=== PATIENT | female | born 1975 | race Caucasian/White ===

== ENCOUNTER 2021-07-16 08:19 | Outpatient (REF) | payer MEDICARE, MEDICAID, SELFPAY ==
[2021-07-16 09:03] LABS: COVID-19 Test Positive (Negative)
== END 2021-07-16 08:20 | disposition home or self-care (01) ==
LOC: HO.LAB 08:19
PROVIDERS: Visit Provider Internal Medicine
DX: Z20.822 Contact with and (suspected) exposure to COVID-19 (principal)
CPT/HCPCS: 87635; C9803

== ENCOUNTER → 2023-04-13 08:11 | Outpatient (BNVA) | payer MEDICARE, MEDICAID, SELFPAY | PROVIDERS: Visit Provider Physician Assistant ==

== ENCOUNTER 2023-05-11 08:06 | Outpatient (AMB) | payer MEDICARE, MEDICAID, SELFPAY ==
--- NOTE | 2023-05-11 08:13 | A.OFFVIS_ITS ---
Intake VS Expanded 05/11/23 08:29 BP 174/2 H Blood Pressure Location Rt brachial Blood Pressure Position Sitting Pulse 105 H Pulse Source Pulse Oximeter Temp 98.0 F Temperature Source Temporal Artery Scan Pulse Oximetry 97 Oxygen Delivery Method Room Air Height 5 ft 5 in Weight 229 lb 3.2 oz BMI 38.1 Body Fat % 45.7 Body Fat Mass 104.8 Fat Free Mass 124.4 Visceral Fat Rating 12.0 Body Water % 38.7 Body Water Mass 88.6 Muscle Mass/Score 118.2 Basal Metabolic Rate/Score 1,752 Intake Visit Reasons: (OV) Revision BMI 37.9 SWL Allergies bupropion [From Wellbutrin] Adverse Reaction (Severe, Verified 05/11/23 08:23) Anxiety Medication List - Last Reconciled 05/11/23 by Micaela Koo PA-C alprazolam 0.25 mg PO BEDTIME PRN amlodipine 5 mg PO DAILY HPI HPI Comments History of Present Illness Details This is a 48 year old woman who had LSG by Dr Bernard at [facility] [place] on 05/11/2023 at 263 lbs states she never had the weight loss that she wanted and has been seeing their RD without success for weight loss. Nausea when hungry only, no emesis, reflux or abd pain. No intolerance to any foods, does not feel that she has much restriction. Her goal is to weight areound 170 lbs She reports first being concerned about her weight 3 years.She lives with her partner and son. She is unemployed. She wakes at:4:30 am, bed at 9am Breakfast: coffee 1 cup at 5am - sugar free creamer or half and half with 3 tsp sugar 6 am - 1-2 eggs with 3 links of sausage. fresh fruit - 3-4 strawberries. 10 am - 48 gram liquid protein shake - 1 2 oz ??, over 30 minutes Lunch: 1pm - half sandwich or 1.5 cups salad with 4 oz whole chicken breast. Dinner: 5pm - half sweet potato, 1/2 cup vegetable and 1 chicken breast or pork chop. Crystal Light After dinner: after dinner fruit or cereal with 2% cows milk - feels hungry Other snacks: may have Ritz crackers - 4 at a time with cheese - eats 4-5 slices (1oz during each day) Liquids: No soda or fruit juice or sweetened drinks Alcohol intake: none, tobacco: none, marijuana: edibles, once per day before or after dinner Exercise: has gym membership, last time 1 month ago. Likes treadmill - speed 3- 4, x 35 minutes, incline 2-3 for 100 calories. Last mammogram: 2022 Last pap smear: 2022 control method: IUD NAMAN: 5 ESS:9 GERD2: QOL:78 PFSH Surgical History (Updated 05/11/23 @ 08:40 by Micaela Koo PA-C) Hx of laparoscopic partial gastrectomy Family History (Updated 05/11/23 @ 08:27 by Danae Marinelli CMA) Mother Colon cancer Father No problems noted. Son Autism Daughter No problems noted. Social History (Updated 05/11/23 @ 08:23 by Danae Marinelli CMA) Alcohol intake: never Patient Tobacco Use Status: Never used Tobacco Physical Exam Vital Signs: Last Vital Signs Temp 98.0 F 05/11/23 08:29 Pulse 105 H 05/11/23 08:29 BP 174/2 H 05/11/23 08:29 Pulse Ox 97 05/11/23 08:29 Oxygen Delivery Method Room Air 05/11/23 08:29 BMI result Body Mass Index 38.1 Const General: cooperative, no acute distress and well developed Nutritional Appearance: obese Orientation/consciousness: patient oriented x3 HEENT Head: Yes normal to inspection Neck Neck: Yes normal visual inspection Thyroid: Thyroid normal Resp Effort & Inspection: normal respiratory effort Auscultation: clear to auscultation bilaterally Cardio Rate: regular rate Rhythm: regular rhythm Heart sounds: S1 normal heart sound present, S2 normal heart sound present and no murmurs GI Inspection: No distended, Yes obesity and Yes scar (well healed laparoscopic scars) Palpation (GI): Soft to palpation, nontender and no guarding Skin General skin exam: no rashes or lesions noted and other (warm and dry) Wounds: no wounds Hair: normal Neuro General: patient oriented x3 Extrem General: Yes no pedal edema and Yes no calf tenderness Psych Attitude: cooperative Thought process: Normal thought process present Thought content: Normal thought content present Insight: Good insight present (Psych) Judgement: Good judgement present (Psych) Assessment & Plan Assessment & Plan (1) Obesity: Code(s): E66.9 - Obesity, unspecified Plan: This is a 48 yo woman with obesuity s/p LSG 2 years who was never given protper nutrition or exercise guidelines. She had 1 post op appt with surgeon only. She is interested in revision of LSg if needed.Blood work, h pylori , CXR, ECG, Abd ULS and UGI have been ordered. She is being scheduled for RD and BH initial consultations. She will start SWL classes and watch at 3 classes before her next appt with Keysha. Will obtain OR report and pathology form [facility]. 1. Adequate sleep of 7-8 hours per night discussed 2. Healthy meal plan - needs to learn appropriate eating behaviors All meals/MR's need to take 20 - 30 minutes to complete coffee with 2% milk only 7:30 am - protein shake with water or UAM 11:30 am - protein shake with water or UAM 2:30pm- bar 5 -6 pm- dinner of 8 forks lean protein, 8 forks vegetable, 1/2serving fruit Exercise - Cardio 4 d week = treadmill at speed 3.0, incline 1-7 - to burn 300 calories, to start. Goal of 2,000 bianca per week The importance of avoiding and breast feeding for at least 18 months a fter bariatric surgery was discussed in the information session and was reinforced today. Pt will purchase body composition analyzer (recommended list given to patient) and weight herself weekly. Next appt with me in 3 weeks. Text me with any questions and weekly weights. Patient is morbidly obese and is not considered stable at this time.?I spent a total of 60 minutes reviewing/updating records, examining the patient and counseling the patient on weight management as detailed above. (2) Hx of laparoscopic partial gastrectomy: Comment: [facility] 05/30 Code(s): Z90.3 - Acquired absence of stomach [part of] (3) Pre-op evaluation: Code(s): Z01.818 - Encounter for other preprocedural examination (4) HTN (hypertension), benign: Code(s): I10 - Essential (primary) hypertension (5) Depression with anxiety: Code(s): F41.8 - Other specified anxiety disorders Orders: Orders IRON PROFILE Today E66.9 - Obesity, unspecified, F41.8 - Other specified anxiety disorders, I10 - Essential (primary) hypertension, Z01.818 - Encounter for other preprocedural examination, Z90.3 - Acquired absence of stomach [part of] Complete Blood Count Auto Diff Today E66.9 - Obesity, unspecified, F41.8 - Other specified anxiety disorders, I10 - Essential (primary) hypertension, Z01.818 - Encounter for other preprocedural examination, Z90.3 - Acquired absence of stomach [part of] Zinc Today E66.9 - Obesity, unspecified, F41.8 - Other specified anxiety disorders, I10 - Essential (primary) hypertension, Z01.818 - Encounter for other preprocedural examination, Z90.3 - Acquired absence of stomach [part of] Comprehensive Met. Panel Today E66.9 - Obesity, unspecified, F41.8 - Other specified anxiety disorders, I10 - Essential (primary) hypertension, Z01.818 - Encounter for other preprocedural examination, Z90.3 - Acquired absence of stomach [part of] Vitamin B1 Today E66.9 - Obesity, unspecified, F41.8 - Other specified anxiety disorders, I10 - Essential (primary) hypertension, Z01.818 - Encounter for other preprocedural examination, Z90.3 - Acquired absence of stomach [part of] Ferritin Today E66.9 - Obesity, unspecified, F41.8 - Other specified anxiety disorders, I10 - Essential (primary) hypertension, Z01.818 - Encounter for other preprocedural examination, Z90.3 - Acquired absence of stomach [part of] H Pylori Breath Test Today E66.9 - Obesity, unspecified, F41.8 - Other specified anxiety disorders, I10 - Essential (primary) hypertension, Z01.818 - Encounter for other preprocedural examination, Z90.3 - Acquired absence of stomach [part of] Vitamin D 25-OH Total Today E66.9 - Obesity, unspecified, F41.8 - Other specified anxiety disorders, I10 - Essential (primary) hypertension, Z01.818 - Encounter for other preprocedural examination, Z90.3 - Acquired absence of stomach [part of] Hemoglobin A1c Today E66.9 - Obesity, unspecified, F41.8 - Other specified anxiety disorders, I10 - Essential (primary) hypertension, Z01.818 - Encounter for other preprocedural examination, Z90.3 - Acquired absence of stomach [part of] XR chest 2V Today E66.9 - Obesity, unspecified, F41.8 - Other specified anxiety disorders, I10 - Essential (primary) hypertension, Z01.818 - Encounter for other preprocedural examination, Z90.3 - Acquired absence of stomach [part of] ECG 12 lead EKG Today E66.9 - Obesity, unspecified, F41.8 - Other specified anxiety disorders, I10 - Essential (primary) hypertension, Z01.818 - Encounter for other preprocedural examination, Z90.3 - Acquired absence of stomach [part of] FL upper GI w air Today E66.9 - Obesity, unspecified, F41.8 - Other specified anxiety disorders, I10 - Essential (primary) hypertension, Z01.818 - Encounter for other preprocedural examination, Z90.3 - Acquired absence of stomach [part of] Insulin Today E66.9 - Obesity, unspecified, F41.8 - Other specified anxiety disorders, I10 - Essential (primary) hypertension, Z01.818 - Encounter for other preprocedural examination, Z90.3 - Acquired absence of stomach [part of] Lipid Panel Today E66.9 - Obesity, unspecified, F41.8 - Other specified anxiety disorders, I10 - Essential (primary) hypertension, Z01.818 - Encounter for other preprocedural examination, Z90.3 - Acquired absence of stomach [part of] Vitamin B12 and Folate Today E66.9 - Obesity, unspecified, F41.8 - Other specified anxiety disorders, I10 - Essential (primary) hypertension, Z01.818 - Encounter for other preprocedural examination, Z90.3 - Acquired absence of stomach [part of] Vitamin A Today E66.9 - Obesity, unspecified, F41.8 - Other specified anxiety disorders, I10 - Essential (primary) hypertension, Z01.818 - Encounter for other preprocedural examination, Z90.3 - Acquired absence of stomach [part of] C Reactive Protein Today E66.9 - Obesity, unspecified, F41.8 - Other specified anxiety disorders, I10 - Essential (primary) hypertension, Z01.818 - Encounter for other preprocedural examination, Z90.3 - Acquired absence of stomach [part of] PTHI Today E66.9 - Obesity, unspecified, F41.8 - Other specified anxiety disorders, I10 - Essential (primary) hypertension, Z01.818 - Encounter for other preprocedural examination, Z90.3 - Acquired absence of stomach [part of] TSH reflex Free T4 Today E66.9 - Obesity, unspecified, F41.8 - Other specified anxiety disorders, I10 - Essential (primary) hypertension, Z01.818 - Encounter for other preprocedural examination, Z90.3 - Acquired absence of stomach [part of] US abdomen comp w elastography Today E66.9 - Obesity, unspecified, F41.8 - Other specified anxiety disorders, I10 - Essential (primary) hypertension, Z01.818 - Encounter for other preprocedural examination, Z90.3 - Acquired absence of stomach [part of] Referrals Nutrition/Dietitian Referral E66.9 - Obesity, unspecified, F41.8 - Other specified anxiety disorders, I10 - Essential (primary) hypertension, Z01.818 - Encounter for other preprocedural examination, Z90.3 - Acquired absence of stomach [part of] Behavioral Health Referral E66.9 - Obesity, unspecified, F41.8 - Other specified anxiety disorders, I10 - Essential (primary) hypertension, Z01.818 - Encounter for other preprocedural examination, Z90.3 - Acquired absence of stomach [part of] Coding Level of Care Code New Pt Level 5 (39515) Diagnoses Obesity E66.9 Hx of laparoscopic partial gastrectomy Z90.3 Pre-op evaluation Z01.818 HTN (hypertension), benign I10 Depression with anxiety F41.8
[2023-05-11 08:29] VITALS: BP 174/2; PULSE 105; TEMP 36.7; O2SAT 97; BMI 38.1
== END 2023-05-11 09:33 | disposition home or self-care (01) ==
PROVIDERS: Visit Provider Physician Assistant
DX: E66.9 Obesity, unspecified (principal); Z68.38 Body mass index [BMI] 38.0-38.9, adult; Z90.3 Acquired absence of stomach [part of]; Z98.84 Bariatric surgery status
CPT/HCPCS: 99205

== ENCOUNTER → 2023-05-11 08:06 | Outpatient (BNVA) | payer MEDICARE, MEDICAID, SELFPAY | PROVIDERS: Visit Provider Physician Assistant | DX: Z01.818 Encounter for other preprocedural examination (principal); E66.9 Obesity, unspecified; I10 Essential (primary) hypertension; F41.8 Other specified anxiety disorders; Z90.3 Acquired absence of stomach [part of]; Z68.38 Body mass index [BMI] 38.0-38.9, adult | CPT/HCPCS: 83013; 99202; 99211 ==

== ENCOUNTER 2023-05-11 16:05 | Outpatient (REF) | payer MEDICARE, MEDICAID, SELFPAY ==
[2023-05-17 15:23] LABS: H Pylori Breath Test Positive (Negative)
== END 2023-05-11 16:06 | disposition home or self-care (01) ==
LOC: HO.LNP 16:05
PROVIDERS: Visit Provider Physician Assistant
DX: Z13.89 Encounter for screening for other disorder (principal)
CPT/HCPCS: 83013

== ENCOUNTER 2023-05-16 15:49 | Outpatient (REF) | payer MEDICARE, MEDICAID, SELFPAY | END 2023-05-16 15:50 | disposition home or self-care (01) | LOC: HO.LNP 15:49 | PROVIDERS: Visit Provider Physician Assistant | DX: Z13.89 Encounter for screening for other disorder (principal) | CPT/HCPCS: 83013 ==

== ENCOUNTER 2023-05-16 16:02 | Outpatient (REF) | payer MEDICARE, MEDICAID, SELFPAY | END 2023-05-16 16:03 | disposition home or self-care (01) | LOC: HO.LNP 16:02 | PROVIDERS: Visit Provider Physician Assistant | DX: Z13.89 Encounter for screening for other disorder (principal) ==

== ENCOUNTER → 2023-05-31 08:30 | Outpatient (BNVA) | payer MEDICARE, MEDICAID, SELFPAY | PROVIDERS: PCP Nurse Practitioner Family; Visit Provider Dietitian, Registered | DX: Z01.818 Encounter for other preprocedural examination (principal); E66.9 Obesity, unspecified; Z90.3 Acquired absence of stomach [part of]; Z71.3 Dietary counseling and surveillance | CPT/HCPCS: 97802 ==

== ENCOUNTER 2023-06-08 10:31 | Outpatient (AMB) | payer MEDICARE, MEDICAID, SELFPAY ==
--- NOTE | 2023-06-08 10:11 | A.OFFWM_ITS ---
Intake Intake Visit Reasons: VIDEO BH Intake Allergies bupropion [From Wellbutrin] Adverse Reaction (Severe, Verified 05/11/23 08:23) Anxiety PFS Surgical History (Updated 05/11/23 @ 08:40 by Micaela Koo PA-C) Hx of laparoscopic partial gastrectomy Family History (Updated 05/11/23 @ 08:27 by Danae Marinelli [facility]) Mother Colon cancer Father No problems noted. Son Autism Daughter No problems noted. 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 She reported that she often struggles with symptoms of depression and anxiety. After she quit her job the beginning of this year, she has started to feel worse. She was in therapy in the past 20 years ago but not currently. Her pcp is perscribing a PRN for anxiety. She has no history of inpatient psychiatric admissions, and no history of drug or alcohol abuse. Presenting Concerns Referral Source provider Reason for referral weight loss surgery evaluation Precipitating Event obesity Living Situation Current Living Situation Rent At risk of losing current housing? No Satisfied with current living situation? Yes Comments Pt lives with her boyfriend and her son who is 20 years old. Food/Weight/Diet Expectations of change weight loss and maintenance History/Relationship with food Pt stated that when she has hunger attacks if she is out, she will grab whatever she can find. Chips, and other snack foods. She was also eating cereal at night before bed. She reported that she loves cooking History/Relationship with weight Pt stated that she has been struggling with her weight for 30 years. She reported that she has never been under 200lbs in her adult life. At her heaviest she was 263lbs. History/Relationship with dieting Previous gastric sleeve. 2020. She reported that she has gained 20 lbs since then. She reported that she has only ever been able to loose 5-10lbs before [facility], JOSUE Sorensen. Binge Eating Do you frequently eat large amounts of food in short periods of time, not feeling physically hungry? No Do you feel out of control when you eat a large amount of food in a short period of time? No Do you eat large amounts of food rapidly and typically alone? No Night Eating Do you wake up at least once during the night to eat? No If you wake up in the night, do you find that it is necessary to eat something in order to fall back asleep? No Do you have little or no appetite in the morning and feel very hungry in the evening, often overeating between dinner and when you go to bed? No Social History Family history and relationship Pt has two adult children. Her son lives at home with her and her boyfriend. She was born and raised in this area raised by her mom with her sister and brother as well as step-father. Pt became tearful when asked about her childhood. Her mother lives in the area and is in fairly good health. she reported that her mom and sister both struggled with their weight in the past. Her sister also had gastric sleeve over 10 years ago and gained all her weight back. 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 Social support boyfriend, son, sister Cultural/Ethnic information Legal Involvement and History Current or historical involvement with the legal system? Pt denied any legal issues. 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 No Interested in further educational program? No Educational Interests/Skills Pt attended [employer] Employment Employment Status Unemployed Meaningful activities Cooking, baking, reading recipes, crafting, music Financial Situation Describe current financial situation Occasional struggle Financial assistance? None Service Service? No Mental Health and Addiction Treatment Current/Past substance abuse? No Current/Past addictive behavior concerns? No Pain Screening Current pain? Yes Pain in the last few months? Yes Comments Pt stated that she struggles with pain from fibromyalgia Medications Is the patient compliant with medications? Yes Does the patient have Kiser Guardian in place? No Does the patient use complimentary health approaches? Yes (Pt has a bad reaction to pain and depression medication and now takes THC at night. ) Trauma/Abuse History History of trauma? Yes Questionnaires PHQ-9 Over the last 2 weeks, how often have you been bothered by any of the following problems? 1. Little interest or pleasure in doing things: more than half the days 2. Feeling down, depressed, or hopeless: more than half the days 3. Trouble falling or staying asleep, or sleeping too much: nearly every day 4. Feeling tired or having little energy: nearly every day 5. Poor appetite or overeating: more than half the days 6. Feeling bad about yourself - or that you are a failure or have let yourself or your family down: nearly every day 7. Trouble concentrating on things, such as reading the newspaper or watching television: nearly every day 8. Moving or speaking so slowly that other people could have noticed. Or the opposite - being so fidgety or restless that you have been moving around a lot more than usual: several days 9. Thoughts that you would be better off or of hurting yourself in some way: not at all Total score: 19 Depression Screening Interpretation: Positive 80159 - PHQ-9 Billing: Yes Source: Developed by Drs. David Hinton, Jina Haynes, Humphrey Reyna and colleagues, with an educational olivia from [employer]. Binge Eating Scale Group 1 A. I don't feel self-conscious about my wt. or body size when I'm with others. B. I feel concerned about how I look to others, but it normally does not make me fell disappointed with myself C. I do get self-conscious about my appearance and wt. which makes me feel disappointed in myself. D. I feel very self-conscious about my wt. and frequently I feel intense shame and disgust for myself. I try to avoid social contacts because of my self- consciousness. Response Group 1: C Group 2 A. I don't have any difficulty eating slowly in the proper manner. B. Although I seem to gobble down foods, I don't end up feeling stuffed because of eating to much. C. At times, I tend to eat quickly and then, I feel uncomfortably full afterwards. D. I have the habit of bolting down my food, without really chewing it. When this happens I usually feel uncomfortably stuffed because I've eaten to much. Response Group 2: A Group 3 A. I feel capable to control my eating urges when I want to. B. I feel like I have failed to control my eating more than the average person. C. I feel utterly helpless when it comes to feeling in control of my eating urges. D. Because I feel so helpless about controlling my eating I have become very desperate about trying to get control. Response Group 3: A Group 4 A. I don't have the habit of eating when I'm bored. B. I sometimes eat when I'm bored, but often I'm able to get busy and get my mind off food. C. I have a regular habit of eating when I'm bored, but occasionally, I can use some other activity to get my mind off eating. D. I have a strong habit of eating when I'm bored. Nothing seems to help me breath the habit. Response Group 4: B Group 5 A. I'm usually physically hungry when I eat something. B. Occasionally, I eat something on impulse even though I really am not hungry. C. I have the regular habit of eating foods, that I might not really enjoy, to satisfy a hungry feeling even though physically, I don't need the food. D. Although I'm not physically hungry, I get a hungry feeling in my mouth that only seems to be satisfied when I eat a food, like sandwich, that fills my mouth. Sometimes, when I eat the food to satisfy my mouth hunger, I then spit the food out so I won't gain weight. Response Group 5: A Group 6 A. I don't feel any guilt or self-hate after I overeat. B. After I overeat, occasionally I feel guilt or self-hate. C. Almost all the time I experience strong guilt or self-hate after I overeat. Response Group 6: A Group 7 A. I don't lose total control of my eating when dieting even after periods when I overeat. B. Sometimes when I eat a forbidden food on a diet, I feel like I blew it and eat even more. C. Frequently, I have the habit of saying to myself, I've blown it now, why not go all the way, when I overeat on a diet. When that happens I eat more. D. I have a regular habit of starting a strict diets for myself but I break the diets by going on an eating binge. My life seems to be either a feast or famine. Response Group 7: A Group 8 A. I rarely eat so much food that I feel uncomfortably stuffed afterwards. B. Usually about once a month, I each such a quantity of food, I end up feeling very stuffed. C. I have regular periods during the month when I eat large amounts of food, either at mealtime or at snacks. D. I eat so much food that I regularly feel quite uncomfortable after eating and sometimes a bit nauseous. Response Group 8: A Group 9 A. My level of calorie intake does not go up very high or go down very low on a regular basis. B. Sometimes after I overeat, I will try to reduce my caloric intake to almost nothing to compensate for the excess calories I've eaten. C. I have a regular habit of overeating during the night. It seems that my routine is not to be hungry in the morning but overeat in the evening. D. In my adult years, I have had week-long periods where I practically starve myself. This follows periods when I overeat. It seems I live a life of either feast or famine. Response Group 9: A Group 10 A. I usually am able to stop eating when I want to. I know when enough is enough. B. Every so often, I experience a compulsion to eat which I can't seem to control. C. Frequently, I experience strong urges to eat which I seem unable to control, but at other times I can control my eating urges. D. I feel incapable of controlling urges to eat. I have a fear of not being able to stop eating voluntarily. Response Group 10: A Group 11 A. I don't have any problem stopping eating when I feel full. B. I usually can stop eating when I feel full but occasionally overeat leaving me feeling uncomfortably stuffed. C. I have a problem stopping eating once I start and usually I feel uncomfortably stuffed after I eat a meal. D. Because I have a problem not being able to stop eating when I want, I sometimes have to induce vomiting to relieve my stuffed feeling. Response Group 11: A Group 12 A. I seem to eat just as much when I'm with others, Family social gatherings as when I'm by myself. B. Sometimes, when I'm with other persons, I don't eat as much as I want to eat because I'm self-conscious about my eating. C. Frequently, I eat only a small amount of food when others are present, because I'm very embarrassed about my eating. D. I feel so ashamed about overeating that I pick times to overeat when I know no one will see me. I feel like a closet eater. Response Group 12: A Group 13 A. I eat three meals a day with only an occasional between meal snack. B. I eat 3 meals a day, but I also normally snack between meals. C. When I am snacking heavily, I get in the habit of skipping regular meals. D. There are regular periods when I seem to be continually eating, with no planned meals. Response Group 13: A Group 14 A. I don't think much about trying to control unwanted eating urges. B. At least some of the time, I feel my thoughts are pre-occupied with trying to control my eating urges. C. I feel that frequently I spend much time thinking about how much I ate or about trying not to eat anymore. D. It seems to me that most of my waking hours are pre-occupied by thoughts about eating or not eating. I feel like I'm constantly struggling not to eat. Response Group 14: A Group 15 A. I don't think about food a great deal. B. I have strong craving for food but they last only for brief periods of time. C. I have days when I can't seem to think about anything else but food. D. Most of my days seem to be pre-occupied with thoughts about food. I feel like I live to eat. Response Group 15: B Group 16 A. I usually know whether or not I'm physically hungry. I take the right portion of food to satisfy me. B. Occasionally, I feel uncertain about knowing whether or not I'm physically hungry. A these times it's hard to know how much food I should take to satisfy me. C. Even though I might know how many calories I should eat, I don't have any idea what is a normal amount of food for me. Response Group 16: A Binge Eating Score: 4 Score less than 17 Minimal Risk Score between 18-26 Moderate Risk Score between 27-46 High Risk Assessment & Plan Assessment & Plan (1) Major depressive disorder, recurrent episode, moderate with anxious distress: Code(s): F33.1 - Major depressive disorder, recurrent, moderate (2) Obesity: Code(s): E66.9 - Obesity, unspecified Plan Patient is struggling with severe depression as well as pain from fibromyalgia. She repored a history of trauma and could not speak about her childhood without crying. She would benefit from trauma informed care. She will be seen again by this travel writer. Telehealth Telehealth Location of provider rendering services: other Location of patient: address on file Patient Identification confirmed using: Name, : Yes Telehealth method: video Patient verbally consented to treatment: Yes Patient verbally consented to billing insurance company: Yes Patient informed of any privacy concerns related to visit: Yes Minutes spent on Phone/Video with Pt.: 45 Coding Level of Care Code Tele Psy Diag Rupal ([id number]) Diagnoses Major depressive disorder, recurrent episode, moderate with anxious distress F3 3.1 Obesity E66.9 Time Spent (min) 45
== END 2023-06-08 10:57 | disposition home or self-care (01) ==
LOC: HO.HBST 10:31
PROVIDERS: PCP Nurse Practitioner Family; Visit Provider Counselor Mental Health
DX: F33.1 Major depressive disorder, recurrent, moderate (principal); E66.9 Obesity, unspecified
CPT/HCPCS: 90791

== ENCOUNTER → 2023-06-08 10:31 | Outpatient (BNVA) | payer MEDICARE, MEDICAID, SELFPAY | PROVIDERS: PCP Nurse Practitioner Family; Visit Provider Counselor Mental Health ==

== ENCOUNTER → 2023-06-09 07:35 | Outpatient (REF) | payer MEDICARE, MEDICAID, SELFPAY ==
--- NOTE | ~2023-06-09 | XR_ITS ---
EXAMINATION: XR CHEST 2 VIEWS CLINICAL INFORMATION: Obesity. COMPARISON: None. TECHNIQUE: Frontal and lateral views of the chest were obtained. FINDINGS: The heart, great vessels, pulmonary vasculature and mediastinum are normal. The lungs show no focal infiltrate, effusion or pneumothorax. There is no acute osseous abnormality. There is a mild lower thoracic levoscoliosis. XR/XR chest 2V IMPRESSION: No active cardiopulmonary disease.
--- NOTE | 2023-06-09 07:48 | ECG_ITS ---
Test Reason : e66.01 Blood Pressure : / mmHG Vent. Rate : 065 BPM Atrial Rate : 065 BPM P-R Int : 168 ms QRS Dur : 074 ms QT Int : 386 ms P-R-T Axes : 045 054 044 degrees QTc Int : 401 ms Normal sinus rhythm Normal ECG No previous ECGs available Referred By: Micaela Koo Electronically Signed By:REMI SHERIFF MD
[2023-06-09 08:08] LABS: MANUAL DIFF FLAG NO
[2023-06-09 08:20] LABS: Basophils Percent Auto 0.6 % (0-2); Eosinophils Absolute Auto 0.2 X10*3/uL (0.0-0.4); Eosinophils Percent Auto 3.1 % (0-4); Hematocrit 44.7 % (37.0-47.0); Hemoglobin 14.8 g/dl (12.0-16.0); Imm Gran Abs Auto 0.01 X10*3/uL (0.00-0.03); Imm Gran Pct Auto 0.2 % (0.0-0.4); Lymphocytes Absolute Auto 0.8 X10*3/uL (1.2-4.9); Lymphocytes Percent Auto 14.9 % (20-40); Mean Corpuscular HGB Conc 33.1 g/dl (31.0-35.0); Mean Corpuscular Volume 84.5 fL (80.0-98.0); Mean Platelet Volume 10.6 fL (9.4-12.3); Monocytes Absolute Auto 0.4 X10*3/uL (0.1-1.2); Monocytes Percent Auto 8.5 % (2-11); Neutrophils Absolute Auto 3.8 x10*3/uL (2.0-8.3); Neutrophils Percent Auto 72.7 % (45-73); Platelet Count 186 X10*3/uL (160-400); Red Blood Count 5.29 X10*6/uL (4.20-5.50); Red Cell Distribution Width 13.6 % (11.0-16.0); White Blood Count 5.2 X10*3/uL (4.8-10.8)
[2023-06-09 08:26] LABS: Estimated Average Glucose 105 mg/dL; Hemoglobin A1c % 5.3 % (<6.0)
[2023-06-09 08:54] LABS: Alanine Aminotransferase 28 U/L (0-31); Albumin Level 4.3 g/dL (3.5-5.0); Alkaline Phosphatase 82 U/L (39-117); Anion Gap 13 (12-20); Aspartate Amino Transferase 27 U/L (5-31); Bilirubin Total 0.7 mg/dL (0.0-1.0); Blood Urea Nitrogen 14 mg/dL (9-16); C Reactive Protein 0.37 mg/dL (< or = 0.50); Calcium 9.9 mg/dL (8.4-10.2); Carbon Dioxide 25 mmol/L (22-29); Chloride 108 mmol/L (96-108); Cholesterol 228 mg/dL (<200); Estimated Glomerular Filt Rate > 60; Glucose Random 88 mg/dL (60-115); HDL Cholesterol 56 mg/dL (>40); Iron 93 mcg/dL (30-160); LDL Cholesterol Calculated 155 mg/dL (<100); Percent Iron Saturation 27 % (15-50); Potassium 4.2 mmol/L (3.3-5.1); Sodium 142 mmol/L (135-145); Total Iron Binding Capacity 350 mcg/dL (228-428); Total Protein 8.5 g/dL (6.5-8.0); Triglycerides 87 mg/dL (<150); Unsaturated Iron Binding 257 ug/dL
[2023-06-09 09:14] LABS: Ferritin 71 ng/mL (10-250); TSH reflex Free T4 0.96 uIU/mL (0.32-4.0); Vitamin D 25-OH Total 29.2 ng/mL (>30)
[2023-06-09 09:20] LABS: Folate 14.7 ng/mL (> or = 4.0); Vitamin B12 425 pg/mL (200-900)
[2023-06-09 09:25] LABS: Insulin 5 uU/mL (2-29)
[2023-06-13 17:08] LABS: Vitamin A 49 mcg/dL (38-98)
[2023-06-14 17:44] LABS: Zinc 73 mcg/dL (60-130)
[2023-06-15 16:49] LABS: Vitamin B1 9 nmol/L (8-30)
== END ==
LOC: HO.CARD 07:35
PROVIDERS: PCP Nurse Practitioner Family; Visit Provider Physician Assistant
DX: Z01.818 Encounter for other preprocedural examination (principal); E66.9 Obesity, unspecified; I10 Essential (primary) hypertension; F41.8 Other specified anxiety disorders; Z90.3 Acquired absence of stomach [part of]
CPT/HCPCS: 36415; 71046; 80053; 80061; 82306; 82607; 82728; 82746; 83036; 83525; 83540; 84425; 84443; 84590; 84630; 85025; 86140; 93005

== ENCOUNTER → 2023-06-09 07:48 | Outpatient (BNV) | payer MEDICARE, MEDICAID, SELFPAY | PROVIDERS: PCP Nurse Practitioner Family; Visit Provider Internal Medicine Cardiovascular Disease | DX: I10 Essential (primary) hypertension (principal); Z01.818 Encounter for other preprocedural examination; E66.01 Morbid (severe) obesity due to excess calories | CPT/HCPCS: 93010 ==

== ENCOUNTER 2023-06-14 08:13 | Outpatient (REF) | payer MEDICARE, MEDICAID, SELFPAY ==
--- NOTE | ~2023-06-14 | US_ITS ---
EXAMINATION: US COMPLETE ABDOMEN WITH LIVER ELASTOGRAPHY CLINICAL INFORMATION: Obesity. COMPARISON: None available. TECHNIQUE: Real-time imaging of the abdominal viscera. Noninvasive ultrasound liver fibrosis assessment is performed using Lauren ElastPQ point quantification shear wave elastography (2D-SWE) with a C5-2 MHz transducer. Multiple elastography samples are obtained. FINDINGS: PANCREAS: Normal. The visualized pancreatic head and body are normal in appearance. The remainder of the pancreas is obscured from visualization by the overlying bowel gas. ABDOMINAL AORTA: The proximal, middle, and distal aortic segments are normal in caliber. INFERIOR VENA CAVA: Visualized portions are normal. LIVER: Normal. The liver demonstrates normal size, contour and echogenicity. No focal lesion or intrahepatic biliary duct dilatation. The right lobe measures 17.8 cm in length. The left lobe measures 8.7 cm in length. Portal flow is towards the liver (hepatopetal). Shear wave liver elastography median stiffness is 1.49 m/s (reference: normal median stiffness is 1.3 m/s or less). IQR/median stiffness to assess sampling precision is 0.12 (reference: good quality data set is IQR/median stiffness of 0.15 or less). GALLBLADDER: A 2.7 cm gallstone is seen. The gallbladder is physiologically distended without evidence of sludge, polyps, wall thickening or pericholecystic fluid. COMMON BILE DUCT: Normal in caliber measuring 0.4 cm in diameter. RIGHT KIDNEY: Normal. No hydronephrosis. No renal calculi or focal parenchymal lesions. The kidney measures 11.8 cm in maximum dimension. LEFT KIDNEY: Normal. No hydronephrosis. No renal calculi or focal parenchymal lesions. The kidney measures 10.7 cm in maximum dimension. SPLEEN: Normal. The spleen measures 9.9 cm in maximum dimension. FREE FLUID: None. US/US abdomen comp w elastography IMPRESSION: 1. There is mild hepatomegaly. 2. Liver elastography: In the absence of other known clinical signs, measurements rule out compensated advanced chronic liver disease. If there are known clinical signs, further testing may be needed for confirmation. 3. There is cholelithiasis. REFERENCE: Society of Radiologists in Ultrasound Liver Stiffness Thresholds (2020): LIVER STIFFNESS THRESHOLDS: *Liver Stiffness equal or less than 1.3 m/s: High probability of being normal. *Liver Stiffness less than 1.7 m/s: In the absence of other known clinical signs, rules out compensated advanced chronic liver disease. *Liver Stiffness 1.7-2.1 m/s: Suggestive of compensated advanced chronic liver disease but need further test for confirmation. *Liver Stiffness over 2.1 m/s: Rules in compensated advanced chronic liver disease. *Liver Stiffness over 2.4 m/s: Suggestive of clinically significant portal hypertension. QUALITY OF DATA SET: *IQR/Median value equal or less than 0.15 implies a quality data set. *IQR/Median value over 0.15 implies a poor quality data set. SIGNIFICANT CHANGE FROM PRIOR EXAM: Significant change if liver stiffness measurement is 10% or greater from prior exam. OTHER CONSIDERATIONS: The stage of liver fibrosis may be overestimated in the setting of acute hepatitis, liver inflammation, elevated liver function tests, hepatic vascular congestion, obstructive cholestasis, non-fasting state, and infiltrative diseases such as amyloidosis and lymphoma. In some patients with NAFLD, the liver stiffness thresholds for compensated advanced chronic liver disease may be lower. In causes other than viral hepatitis and NAFLD, liver stiffness thresholds are not well established.
== END 2023-06-14 08:14 | disposition home or self-care (01) ==
LOC: HO.US 08:13
PROVIDERS: PCP Nurse Practitioner Family; Visit Provider Physician Assistant
DX: Z01.818 Encounter for other preprocedural examination (principal); E66.9 Obesity, unspecified; I10 Essential (primary) hypertension; F41.8 Other specified anxiety disorders; Z90.3 Acquired absence of stomach [part of]
CPT/HCPCS: 76705; 76981

== ENCOUNTER 2023-06-20 10:55 | Outpatient (AMB) | payer MEDICARE, MEDICAID, SELFPAY ==
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
== END 2023-06-29 13:43 | disposition home or self-care (01) ==
LOC: HO.HBST 10:55
PROVIDERS: PCP Nurse Practitioner Family; Visit Provider Counselor Mental Health
DX: F33.1 Major depressive disorder, recurrent, moderate (principal); E66.9 Obesity, unspecified
CPT/HCPCS: 90832

== ENCOUNTER → 2023-06-20 10:55 | Outpatient (BNVA) | payer MEDICARE, MEDICAID, SELFPAY | PROVIDERS: PCP Nurse Practitioner Family; Visit Provider Counselor Mental Health ==

== ENCOUNTER 2023-06-22 10:15 | Outpatient (AMB) | payer MEDICARE, MEDICAID, SELFPAY ==
--- NOTE | 2023-06-22 10:21 | A.OFFVIS_ITS ---
Intake VS Expanded 06/22/23 10:33 BP 169/79 H Blood Pressure Location Lt brachial Blood Pressure Position Sitting Pulse 91 Pulse Source Pulse Oximeter Temp 97.4 F Temperature Source Tympanic Pulse Oximetry 91 L Oxygen Delivery Method Room Air Height 5 ft 5 in Weight 222 lb 6.4 oz BMI 37.0 Body Fat % 44.8 Body Fat Mass 99.6 Fat Free Mass 122.6 Visceral Fat Rating 12.0 Body Water % 39.4 Body Water Mass 87.6 Muscle Mass/Score 116.4 Basal Metabolic Rate/Score 1,721 Intake Visit Reasons: (OV) F/U SWL Allergies bupropion [From Wellbutrin] Adverse Reaction (Severe, Verified 06/22/23 10:42) Anxiety HPI HPI Comments History of Present Illness Details This is the patients second appt for revision of LSG done at [facility] [place] May 2023. Starting weight was 229.1 lbs on 05/11/23. TBWL is 5 lbs or 2 % TBWL. Feels better mentally BP high today - does not remember to take amlodipine daily - none today Meal plan: 6am - 1 cup with 2% or sugar free creame r 8:30 am - Pure protein with 8 oz UAM wit h PB over 30 minutes, likes it thick 10:30 - 11 am - PP bar 2:30 - shake 6pm - mostly chicken - 8 forks and salad or corn or other green vegetables 1 hour later an apple Exercise - 2 d/week, walks 2-3 miles, time? calories? uses [employer] Pre op work up completed as follows: [facility] classes - - appts - follow up next week RD appts - cleared, but has not watched classes yet -- will follow up with her H pylori - POSITIVE - finished treatment 06/20. Labs - allnormal, vit d deficient, elevated cholesterol will discuss with PCP CXR and ECG - both normal ULS - R 17.8, L 8.7, cholelithiasis UGI - 07/28/23 Contraception- IUD PFSH Surgical History Hx of laparoscopic partial gastrectomy Family History Mother Colon cancer Father No problems noted. Son Autism Daughter No problems noted. Social History (Updated 05/11/23 @ 08:23 by Danae Marinelli CMA) Alcohol intake: never Patient Tobacco Use Status: Never used Tobacco Assessment & Plan Assessment & Plan (1) Obesity: Code(s): E66.9 - Obesity, unspecified Plan: No adddidng supplements to shakes, and measure dinner portions with 6-8 forkfuls each. Exercise - will start gym 5 d/wk. treaadmill - speed 3.0, incline 2-6, changing every 3 minutes, calories 350 each Next me in 3 weeks. text me weekly Patient is morbidly obese and is not considered stable at this time. I spent 30 minutes in total with patient reviewing/updating records, examining the patient and counseling the patient on weight management as detailed above. H pylori retest in 2 weeks (2) Hx of laparoscopic partial gastrectomy: Comment: [facility] 05/30 Code(s): Z90.3 - Acquired absence of stomach [part of] Plan: OR report and path in chart Coding Level of Care Code Est Pt Level 4 (85877) Diagnoses Obesity E66.9 Hx of laparoscopic partial gastrectomy Z90.3
[2023-06-22 10:33] VITALS: BP 169/79; PULSE 91; TEMP 36.3; O2SAT 91; BMI 37.0
== END 2023-06-22 11:20 | disposition home or self-care (01) ==
PROVIDERS: Visit Provider Physician Assistant
DX: E66.9 Obesity, unspecified (principal); Z68.37 Body mass index [BMI] 37.0-37.9, adult; Z90.3 Acquired absence of stomach [part of]; Z98.84 Bariatric surgery status
CPT/HCPCS: 99214

== ENCOUNTER → 2023-06-22 10:15 | Outpatient (BNVA) | payer MEDICARE, MEDICAID, SELFPAY | PROVIDERS: Visit Provider Physician Assistant | DX: E66.9 Obesity, unspecified (principal); Z90.3 Acquired absence of stomach [part of]; Z68.37 Body mass index [BMI] 37.0-37.9, adult | CPT/HCPCS: 99212 ==

== ENCOUNTER 2023-06-29 09:56 | Outpatient (AMB) | payer MEDICARE, MEDICAID, SELFPAY ==
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
== END 2023-06-29 10:05 | disposition home or self-care (01) ==
LOC: HO.HBST 09:56
PROVIDERS: PCP Nurse Practitioner Family; Visit Provider Counselor Mental Health
DX: F33.1 Major depressive disorder, recurrent, moderate (principal); E66.9 Obesity, unspecified
CPT/HCPCS: 90834

== ENCOUNTER → 2023-06-29 09:56 | Outpatient (BNVA) | payer MEDICARE, MEDICAID, SELFPAY | PROVIDERS: PCP Nurse Practitioner Family; Visit Provider Counselor Mental Health ==

== ENCOUNTER → 2023-07-07 07:52 | Outpatient (BNVA) | payer MEDICARE, MEDICAID, SELFPAY | PROVIDERS: PCP Nurse Practitioner Family; Visit Provider Physician Assistant | DX: Z11.0 Encounter for screening for intestinal infectious diseases (principal) | CPT/HCPCS: 99211 ==

== ENCOUNTER 2023-07-11 19:09 | Outpatient (REF) | payer MEDICARE, MEDICAID, SELFPAY ==
[2023-07-13 16:51] LABS: H Pylori Breath Test Negative (Negative)
== END 2023-07-11 19:10 | disposition home or self-care (01) ==
LOC: HO.LNP 19:09
PROVIDERS: Visit Provider Physician Assistant
DX: Z01.818 Encounter for other preprocedural examination (principal); Z11.0 Encounter for screening for intestinal infectious diseases
CPT/HCPCS: 83013

== ENCOUNTER 2023-07-12 09:00 | Outpatient (AMB) | payer MEDICARE, MEDICAID, SELFPAY ==
--- NOTE | 2023-07-12 08:59 | A.OFFVIS_ITS ---
Intake VS Expanded 07/12/23 09:24 Height 5 ft 5 in Weight 223 lb 6 oz BMI 37.2 Intake Visit Reasons: VIDEO F/U SWL Allergies bupropion [From Wellbutrin] Adverse Reaction (Severe, Verified 06/22/23 10:42) Anxiety HPI HPI Comments History of Present Illness Details This is the patients second appt for revision of LSG done at [facility] [place] May 2023. Starting weight was 229.1 lbs on 05/11/23. TBWL is lbs or 2 % TBWL. Has been diagnose with plantar fasciiitis on left. Meal plan: eats more when sheis pre-menstrual, ran out of protein bars restarted bars. 6am coffee -with UAM 9am - Premier powder with UAm - over 30 40 minutes 11 am - bar - over 10 minutes 2-3 pm - shake 4:30 bar 6:30 pm - 7 -8 forks chicken and 6 -7 fo rks vegetables Gym -started yesterday. Treadmill - burned 300 calries over 65 minutes. speed 3.5, incline up to 4.5. Today did speed 3, incline 2-4, burned 211 over 46 minutes. Each time heel pain starts. Pre op work up completed as follows: [facility] classes - 02/14 appts - follow up continues RD appts - cleared H pylori - POSITIVE - finished treatment 06/20, retest done 07/07 - result pending Labs - all normal, vit d deficient, elevated cholesterol will discuss with PCP CXR and ECG - both normal ULS - R 17.8, L 8.7, cholelithiasis UGI - 07/28/23 Contraception- IUD OR report received, no pathology report attached. [facility] Surgical History Hx of laparoscopic partial gastrectomy Family History Mother Colon cancer Father No problems noted. Son Autism Daughter No problems noted. Social History Alcohol intake: never Patient Tobacco Use Status: Never used Tobacco Assessment & Plan Assessment & Plan (1) Obesity: Code(s): E66.9 - Obesity, unspecified Plan: Minimal weight loss so far, has not been able to commit to the plan over the holidays. Is having regualr appts rajendra Mcclure - finds them very helpful. Meal plan Try to be consistent with eating every 3-4 hours, slow down meals to 30 minutes. Second bar only if Hungry - and then only part of bar. Exercise - start rolling foot with ice bottle up to tid, and after exercise. Use recumbent bike now more often and treadmill only 2 d/ week prn due to plantar fasciitis. All 300 calories burned. Repeat h pylori pending, pathology report from LSG pending. Next appt with me in 3 weeks. Patient is still obese and is not considered stable at this time. I spent 30 minutes in total speaking with the patient via video conference counseling , reviewing records and charting in patients chart. . (2) Hx of laparoscopic partial gastrectomy: Comment: [facility] 05/30 Code(s): Z90.3 - Acquired absence of stomach [part of] (3) Major depressive disorder, recurrent episode, moderate with anxious distress: Code(s): F33.1 - Major depressive disorder, recurrent, moderate Plan see above Telehealth Telehealth Location of provider rendering services: practice address Location of patient: address on file Patient Identification confirmed using: Name, : Yes Telehealth method: video Patient verbally consented to treatment: Yes Patient verbally consented to billing insurance company: Yes Patient informed of any privacy concerns related to visit: Yes Coding Level of Care Code Tele Est Pt Level 4 (54390) Diagnoses Obesity E66.9 Hx of laparoscopic partial gastrectomy Z90.3 Major depressive disorder, recurrent episode, moderate with anxious distress F33.1
[2023-07-12 09:24] VITALS: BMI 37.2
== END 2023-07-12 09:35 | disposition home or self-care (01) ==
LOC: HO.HBS 09:08
PROVIDERS: PCP Nurse Practitioner Family; Visit Provider Physician Assistant
DX: E66.9 Obesity, unspecified (principal); Z68.37 Body mass index [BMI] 37.0-37.9, adult; Z90.3 Acquired absence of stomach [part of]; Z98.84 Bariatric surgery status
CPT/HCPCS: 99214

== ENCOUNTER → 2023-07-12 09:00 | Outpatient (BNVA) | payer MEDICARE, MEDICAID, SELFPAY | PROVIDERS: PCP Nurse Practitioner Family; Visit Provider Physician Assistant ==

== ENCOUNTER 2023-07-26 11:24 | Outpatient (AMB) | payer MEDICARE, MEDICAID, SELFPAY ==
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
== END 2023-07-26 15:28 | disposition home or self-care (01) ==
LOC: HO.HBST 11:24
PROVIDERS: PCP Nurse Practitioner Family; Visit Provider Counselor Mental Health
DX: F33.1 Major depressive disorder, recurrent, moderate (principal); E66.9 Obesity, unspecified
CPT/HCPCS: 90834

== ENCOUNTER → 2023-07-26 11:24 | Outpatient (BNVA) | payer MEDICARE, MEDICAID, SELFPAY | PROVIDERS: PCP Nurse Practitioner Family; Visit Provider Counselor Mental Health ==

== ENCOUNTER 2023-07-28 08:23 | Outpatient (REF) | payer MEDICARE, MEDICAID, SELFPAY ==
--- NOTE | ~2023-07-28 | FL_ITS ---
EXAMINATION: XR FLUOROSCOPY UPPER GI WITH AIR CLINICAL INFORMATION: Preop evaluation prior to bariatric surgery COMPARISON: None TECHNIQUE: Fluoroscopic air contrast upper GI examination was performed utilizing standard techniques with thin and thick barium and effervescent granules. Numerous spot images were obtained. FINDINGS: Dual and single contrast images of the esophagus demonstrate normal caliber, contour, and mucosal pattern. No evidence of stricture, mass, or ulcerations identified. Esophageal peristalsis was normal. A small to moderate sized hiatal hernia is present. Gastroesophageal reflux is seen up to the thoracic inlet. Dual contrast and single contrast images of the stomach demonstrated normal contour and mucosal pattern without evidence of mass, ulceration, or other abnormality. Contrast freely passed into the gastric antrum and duodenal bulb without delay. Single and air-contrast images of the duodenal bulb demonstrate no abnormality. The duodenal sweep has a normal appearance, course, and mucosal fold appearance. No malrotation. The imaged proximal jejunum has a normal fold pattern and caliber. FLUOROSCOPY TIME: 2 minutes 37 seconds Number of Spot Images: 6 Number of Cine: 10 DOSE AREA PRODUCT: 1899 uGy-m2 (microgray-meter squared) FL/FL upper GI w air IMPRESSION: 1. Small to moderate-sized sliding hiatal hernia is present 2. Significant gastroesophageal reflux This procedure was performed by Jose Mejia PA-C, and supervised by Dr. Catalan
== END 2023-07-28 08:24 | disposition home or self-care (01) ==
LOC: HO.XRAY 08:23
PROVIDERS: PCP Nurse Practitioner Family; Visit Provider Physician Assistant
DX: Z01.818 Encounter for other preprocedural examination (principal); E66.9 Obesity, unspecified; Z90.3 Acquired absence of stomach [part of]
CPT/HCPCS: 74246

== ENCOUNTER → 2023-07-28 08:24 | Outpatient (BNV) | payer MEDICARE, MEDICAID, SELFPAY | PROVIDERS: PCP Nurse Practitioner Family; Visit Provider Radiology Diagnostic Radiology | DX: Z01.818 Encounter for other preprocedural examination (principal) | CPT/HCPCS: 74246 ==

== ENCOUNTER 2023-07-31 10:00 | Outpatient (AMB) | payer MEDICARE, MEDICAID, SELFPAY ==
--- NOTE | 2023-07-31 10:02 | MHC.OFFVISWM ---
Intake Intake Visit Reasons: VIDEO F/U SWL Allergies bupropion [From Wellbutrin] Adverse Reaction (Severe, Verified 06/22/23 10:42) Anxiety HPI HPI Comments History of Present Illness Details SWL follow up for revision of previous LSG. [employer] weight of 259 lbs. She states there are alot of personal issues that she is trying to work on now. Has been referred to [facility]. Meal plan: follows it some days but not others - has not been able to be consistent. Exercise: has gone to the gym a few times, gets very anxious if she goes any later than 6 am. Pre op work up completed as follows: SWL classes - 02/14 appts - follow up continues with Kami next appt 08/08. RD appts - cleared H pylori - POSITIVE - finished treatment 06/20, retest done 07/07 - negative Labs - all normal, vit d deficient, elevated cholesterol will discuss with PCP CXR and ECG - both normal ULS - R 17.8, L 8.7, cholelithiasis UGI - FINDINGS: Dual and single contrast images of the esophagus demonstrate normal caliber, contour, and mucosal pattern. No evidence of stricture, mass, or ulcerations identified. Esophageal peristalsis was normal. A small to moderate sized hiatal hernia is present. Gastroesophageal reflux is seen up to the thoracic inlet. Dual contrast and single contrast images of the stomach demonstrated normal contour and mucosal pattern without evidence of mass, ulceration, or other abnormality. Contrast freely passed into the gastric antrum and duodenal bulb without delay. Single and air-contrast images of the duodenal bulb demonstrate no abnormality. The duodenal sweep has a normal appearance, course, and mucosal fold appearance. No malrotation. The imaged proximal jejunum has a normal fold pattern and caliber. FL/FL upper GI w air IMPRESSION: 1. Small to moderate-sized sliding hiatal hernia is present 2. Significant gastroesophageal reflux Contraception- IUD OR report received, no pathology report attached. [facility] Surgical History Hx of laparoscopic partial gastrectomy Family History Mother Colon cancer Father No problems noted. Son Autism Daughter No problems noted. Social History Alcohol intake: never Patient Tobacco Use Status: Never used Tobacco Assessment & Plan Assessment & Plan (1) Obesity: Code(s): E66.9 - Obesity, unspecified Plan: Pt understands that without a consistent meal and exercise program she will not be able to lose significant weight whether she has a revision of her previous LSG or not. We revewed her UGI findings. Gong forward she will try to maintain consistency with her routines and send me her weights weekly. Once she is able to commit to these changes we can restart appointments. Will follow up with Kami. Patient is still obese and is not considered stable at this time. I spent 22 minutes in total speaking with the patient via video conference counseling , reviewing records and charting in patients chart. . (2) Hx of laparoscopic partial gastrectomy: Comment: [facility] 05/30 Code(s): Z90.3 - Acquired absence of stomach [part of] (3) Major depressive disorder, recurrent episode, moderate with anxious distress: Code(s): F33.1 - Major depressive disorder, recurrent, moderate Plan see above Telehealth Telehealth Location of provider rendering services: practice address Location of patient: address on file Patient Identification confirmed using: Name, : Yes Telehealth method: voice only (video could not connect) Patient verbally consented to treatment: Yes Patient verbally consented to billing insurance company: Yes Patient informed of any privacy concerns related to visit: Yes Coding Level of Care Code Tele Est Pt Level 3 (26485) Diagnoses Obesity E66.9 Hx of laparoscopic partial gastrectomy Z90.3 Major depressive disorder, recurrent episode, moderate with anxious distress F33.1
== END 2023-07-31 10:30 | disposition home or self-care (01) ==
LOC: HO.HBS 10:30
PROVIDERS: PCP Nurse Practitioner Family; Visit Provider Physician Assistant
DX: E66.9 Obesity, unspecified (principal); Z68.37 Body mass index [BMI] 37.0-37.9, adult; Z90.3 Acquired absence of stomach [part of]; Z98.84 Bariatric surgery status
CPT/HCPCS: 99443

== ENCOUNTER → 2023-07-31 10:00 | Outpatient (BNVA) | payer MEDICARE, MEDICAID, SELFPAY | PROVIDERS: PCP Nurse Practitioner Family; Visit Provider Physician Assistant | DX: E66.9 Obesity, unspecified (principal); Z90.3 Acquired absence of stomach [part of]; F33.1 Major depressive disorder, recurrent, moderate ==

== ENCOUNTER 2023-08-08 12:37 | Outpatient (AMB) | payer MEDICARE, MEDICAID, SELFPAY ==
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
== END 2023-08-08 13:29 | disposition home or self-care (01) ==
LOC: HO.HBST 12:37
PROVIDERS: PCP Nurse Practitioner Family; Visit Provider Counselor Mental Health
DX: F33.1 Major depressive disorder, recurrent, moderate (principal); E66.9 Obesity, unspecified
CPT/HCPCS: 90832

== ENCOUNTER → 2023-08-08 12:37 | Outpatient (BNVA) | payer MEDICARE, MEDICAID, SELFPAY | PROVIDERS: PCP Nurse Practitioner Family; Visit Provider Counselor Mental Health ==

== ENCOUNTER 2023-08-15 16:07 | Outpatient (AMB) | payer MEDICARE, MEDICAID, SELFPAY ==
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
== END 2023-08-30 11:05 | disposition home or self-care (01) ==
LOC: HO.HBST 16:07
PROVIDERS: PCP Nurse Practitioner Family; Visit Provider Counselor Mental Health
DX: F33.1 Major depressive disorder, recurrent, moderate (principal); E66.9 Obesity, unspecified
CPT/HCPCS: 90832

== ENCOUNTER → 2023-08-15 16:07 | Outpatient (BNVA) | payer MEDICARE, MEDICAID, SELFPAY | PROVIDERS: PCP Nurse Practitioner Family; Visit Provider Counselor Mental Health ==

== ENCOUNTER 2023-08-30 11:43 | Outpatient (AMB) | payer MEDICARE, MEDICAID, SELFPAY ==
--- NOTE | 2023-08-31 09:50 | A.OFFWM_ITS ---
Intake Intake Visit Reasons: VIDEO F/U Allergies bupropion [From Wellbutrin] Adverse Reaction (Severe, Verified 06/22/23 10:42) Anxiety PFSH Surgical History Hx of laparoscopic partial gastrectomy Family History Mother Colon cancer Father No problems noted. Son Autism Daughter No problems noted. Social History Alcohol intake: never Patient Tobacco Use Status: Never used Tobacco Behavioral Health Assessment Weight Management Therapy Therapy Notes Details Patient stated that she continues to struggle with depression, crying, and irritability. Often does not want to leave her house. Discussed making plans and following through to get out of the house, does have plans this monday with her family to go to the outlets. She reported two good days over the weekend where she did not cry. Often thinks fearful negative thoughts, especially in regards to the rel. with her daughter. What ifs and worst case scenario. Pt is looking to have weight loss surgery revision to help reach her health goals and improve her quality of life. She reported that she often struggles with symptoms of depression and anxiety. After she quit her job the beginning of this year, she has started to feel worse. She was in therapy in the past 20 years ago but not currently. Her pcp is perscribing a PRN for anxiety. She has no history of inpatient psychiatric admissions, and no history of drug or alcohol abuse. Presenting Concerns Referral Source provider Reason for referral weight loss surgery evaluation Precipitating Event obesity Living Situation Current Living Situation Rent At risk of losing current housing? No Satisfied with current living situation? Yes Comments Pt lives with her boyfriend and her son who is 20 years old. Food/Weight/Diet Expectations of change weight loss and maintenance History/Relationship with food Pt stated that when she has hunger attacks if she is out, she will grab whatever she can find. Chips, and other snack foods. She was also eating cereal at night before bed. She reported that she loves cooking History/Relationship with weight Pt stated that she has been struggling with her weight for 30 years. She reported that she has never been under 200lbs in her adult life. At her heaviest she was 263lbs. History/Relationship with dieting Previous gastric sleeve. 2020. She reported that she has gained 20 lbs since then. She reported that she has only ever been able to loose 5-10lbs before WW, JOSUE Sorensen. Binge Eating Do you frequently eat large amounts of food in short periods of time, not feeling physically hungry? No Do you feel out of control when you eat a large amount of food in a short period of time? No Do you eat large amounts of food rapidly and typically alone? No Night Eating Do you wake up at least once during the night to eat? No If you wake up in the night, do you find that it is necessary to eat something in order to fall back asleep? No Do you have little or no appetite in the morning and feel very hungry in the evening, often overeating between dinner and when you go to bed? No Social History Family history and relationship Pt has two adult children. Her son lives at home with her and her boyfriend. She was born and raised in this area raised by her mom with her sister and brother as well as step-father. Pt became tearful when asked about her childhood. Her mother lives in the area and is in fairly good health. she reported that her mom and sister both struggled with their weight in the past. Her sister also had gastric sleeve over 10 years ago and gained all her weight back. Parental/Familial auto tune up mechanic obligations none Developmental history and status Pt did not report any issues in this area. Social support boyfriend, son, sister Cultural/Ethnic information Legal Involvement and History Current or historical involvement with the legal system? Pt denied any legal issues. Education Highest grade completed trade school for culinary Preferred learning style Auditory, Verbal, Written, Learn by doing and Visual Currently enrolled in educational program? No Interested in further educational program? No Educational Interests/Skills Pt attended [employer] Employment Employment Status Unemployed Meaningful activities Cooking, baking, reading recipes, crafting, music Financial Situation Describe current financial situation Occasional struggle Financial assistance? None Service Service? No Mental Health and Addiction Treatment Current/Past substance abuse? No Current/Past addictive behavior concerns? No Pain Screening Current pain? Yes Pain in the last few months? Yes Comments Pt stated that she struggles with pain from fibromyalgia Medications Is the patient compliant with medications? Yes Does the patient have Kiser Guardian in place? No Does the patient use complimentary health approaches? Yes (Pt has a bad reaction to pain and depression medication and now takes THC at night. ) Trauma/Abuse History History of trauma? Yes Assessment & Plan Assessment & Plan (1) Major depressive disorder, recurrent episode, moderate with anxious distress: Code(s): F33.1 - Major depressive disorder, recurrent, moderate (2) Obesity: Code(s): E66.9 - Obesity, unspecified Plan Patient is struggling with severe depression as well as pain from fibromyalgia. She described feeling very overwhelmed and stressed out by family situation with her daughter. She is also seeking more frequent permanent therapy which she will reach out to her PCP for as they have therapist in the office. She has an intake scheduled however is seeing someone temporarily from her PCP's office. Pt is unsure if she should continue the program. We discussed the importance especially now of taking care of herself. She will be seen again. Telehealth Telehealth Location of provider rendering services: other Location of patient: address on file Patient Identification confirmed using: Name, : Yes Telehealth method: video Patient verbally consented to treatment: Yes Patient verbally consented to billing insurance company: Yes Patient informed of any privacy concerns related to visit: Yes Minutes spent on Phone/Video with Pt.: 30 Coding Level of Care Code Tele Psytx 45 mins (53685) Diagnoses Major depressive disorder, recurrent episode, moderate with anxious distress F33.1 Obesity E66.9 Time Spent (min) 40
== END 2023-08-31 09:50 | disposition home or self-care (01) ==
LOC: HO.HBST 11:43
PROVIDERS: PCP Nurse Practitioner Family; Visit Provider Counselor Mental Health
DX: F33.1 Major depressive disorder, recurrent, moderate (principal); E66.9 Obesity, unspecified
CPT/HCPCS: 90834

== ENCOUNTER → 2023-08-30 11:43 | Outpatient (BNVA) | payer MEDICARE, MEDICAID, SELFPAY | PROVIDERS: PCP Nurse Practitioner Family; Visit Provider Counselor Mental Health ==

== ENCOUNTER 2023-09-06 11:22 | Outpatient (AMB) | payer MEDICARE, MEDICAID, SELFPAY ==
--- NOTE | 2024-02-06 15:46 | A.OFFWM_ITS ---
Intake Intake Visit Reasons: VIDEO F/U Allergies bupropion [From Wellbutrin] Adverse Reaction (Severe, Verified 06/22/23 10:42) Anxiety PFSH Surgical History Hx of laparoscopic partial gastrectomy Family History Mother Colon cancer Father No problems noted. Son Autism Daughter No problems noted. Social History Alcohol intake: never Patient Tobacco Use Status: Never used Tobacco Behavioral Health Assessment Weight Management Therapy Therapy Notes Details Patient stated that she continues to struggle with depression, crying, and irritability. Often does not want to leave her house. She wants to get back to working but is scared Pt is looking to have weight loss surgery revision to help reach her health goals and improve her quality of life. She reported that she often struggles with symptoms of depression and anxiety. After she quit her job the beginning of this year, she has started to feel worse. She was in therapy in the past 20 years ago but not currently. Her pcp is perscribing a PRN for anxiety. She has no history of inpatient psychiatric admissions, and no history of drug or alcohol abuse. Presenting Concerns Referral Source provider Reason for referral weight loss surgery evaluation Precipitating Event obesity Living Situation Current Living Situation Rent At risk of losing current housing? No Satisfied with current living situation? Yes Comments Pt lives with her boyfriend and her son who is 20 years old. Food/Weight/Diet Expectations of change weight loss and maintenance History/Relationship with food Pt stated that when she has hunger attacks if she is out, she will grab whatever she can find. Chips, and other snack foods. She was also eating cereal at night before bed. She reported that she loves cooking History/Relationship with weight Pt stated that she has been struggling with her weight for 30 years. She reported that she has never been under 200lbs in her adult life. At her heaviest she was 263lbs. History/Relationship with dieting Previous gastric sleeve. 2020. She reported that she has gained 20 lbs since then. She reported that she has only ever been able to loose 5-10lbs before WW, JOSUE Sorensen. Binge Eating Do you frequently eat large amounts of food in short periods of time, not feeling physically hungry? No Do you feel out of control when you eat a large amount of food in a short period of time? No Do you eat large amounts of food rapidly and typically alone? No Night Eating Do you wake up at least once during the night to eat? No If you wake up in the night, do you find that it is necessary to eat something in order to fall back asleep? No Do you have little or no appetite in the morning and feel very hungry in the evening, often overeating between dinner and when you go to bed? No Social History Family history and relationship Pt has two adult children. Her son lives at home with her and her boyfriend. She was born and raised in this area raised by her mom with her sister and brother as well as step-father. Pt became tearful when asked about her childhood. Her mother lives in the area and is in fairly good health. she reported that her mom and sister both struggled with their weight in the past. Her sister also had gastric sleeve over 10 years ago and gained all her weight back. Parental/Familial administrative sales assistant obligations none Developmental history and status Pt did not report any issues in this area. Social support boyfriend, son, sister Cultural/Ethnic information Legal Involvement and History Current or historical involvement with the legal system? Pt denied any legal issues. Education Highest grade completed trade school for [employer] Preferred learning style Auditory, Verbal, Written, Learn by doing and Visual Currently enrolled in educational program? No Interested in further educational program? No Educational Interests/Skills Pt attended [employer] Employment Employment Status Unemployed Meaningful activities Cooking, baking, reading recipes, crafting, music Financial Situation Describe current financial situation Occasional struggle Financial assistance? None Service Service? No Mental Health and Addiction Treatment Current/Past substance abuse? No Current/Past addictive behavior concerns? No Pain Screening Current pain? Yes Pain in the last few months? Yes Comments Pt stated that she struggles with pain from fibromyalgia Medications Is the patient compliant with medications? Yes Does the patient have Kiser Guardian in place? No Does the patient use complimentary health approaches? Yes (Pt has a bad reaction to pain and depression medication and now takes THC at night. ) Trauma/Abuse History History of trauma? Yes Assessment & Plan Assessment & Plan (1) Major depressive disorder, recurrent episode, moderate with anxious distress: Code(s): F33.1 - Major depressive disorder, recurrent, moderate (2) Obesity: Code(s): E66.9 - Obesity, unspecified Plan Patient is struggling with severe depression as well as pain from fibromyalgia. She described feeling very overwhelmed and stressed out by family situation with her daughter. She is also seeking more frequent permanent therapy which she will reach out to her PCP for as they have therapist in the office. Pt is unsure if she should continue the program. We discussed the importance especially now of taking care of herself. She will be seen again. Telehealth Telehealth Location of provider rendering services: other Location of patient: address on file Patient Identification confirmed using: Name, : Yes Telehealth method: video Patient verbally consented to treatment: Yes Patient verbally consented to billing insurance company: Yes Patient informed of any privacy concerns related to visit: Yes Minutes spent on Phone/Video with Pt.: 30 Coding Level of Care Code Tele Psytx 30 mins (11096) Diagnoses Major depressive disorder, recurrent episode, moderate with anxious distress F33.1 Obesity E66.9 Time Spent (min) 30
== END 2023-09-06 11:39 | disposition home or self-care (01) ==
LOC: HO.HBST 11:23
PROVIDERS: PCP Nurse Practitioner Family; Visit Provider Counselor Mental Health
DX: F33.1 Major depressive disorder, recurrent, moderate (principal); E66.9 Obesity, unspecified
CPT/HCPCS: 90832

== ENCOUNTER → 2023-09-06 11:22 | Outpatient (BNVA) | payer MEDICARE, MEDICAID, SELFPAY | PROVIDERS: PCP Nurse Practitioner Family; Visit Provider Counselor Mental Health ==

== ENCOUNTER 2023-09-13 11:16 | Outpatient (AMB) | payer MEDICARE, MEDICAID, SELFPAY ==
--- NOTE | 2023-09-13 11:13 | MHC.WMTHER ---
Intake Intake Visit Reasons: VIDEO F/U Allergies bupropion [From Wellbutrin] Adverse Reaction (Severe, Verified 06/22/23 10:42) Anxiety PFSH Surgical History Hx of laparoscopic partial gastrectomy Family History Mother Colon cancer Father No problems noted. Son Autism Daughter No problems noted. Social History Alcohol intake: never Patient Tobacco Use Status: Never used Tobacco Behavioral Health Assessment Weight Management Therapy Therapy Notes Details Patient reported some improvements in her mood. Even had an interview last week, keeps applying for more jobs, has come to realize that she wants to work with seniors. Started to work on her hobbies again such as crafting, struggles with finishing projects, Pt is looking to have weight loss surgery revision to help reach her health goals and improve her quality of life. She reported that she often struggles with symptoms of depression and anxiety. After she quit her job the beginning of this year, she has started to feel worse. She was in therapy in the past 20 years ago but not currently. Her pcp is perscribing a PRN for anxiety. She has no history of inpatient psychiatric admissions, and no history of drug or alcohol abuse. Presenting Concerns Referral Source provider Reason for referral weight loss surgery evaluation Precipitating Event obesity Living Situation Current Living Situation Rent At risk of losing current housing? No Satisfied with current living situation? Yes Comments Pt lives with her boyfriend and her son who is 20 years old. Food/Weight/Diet Expectations of change weight loss and maintenance History/Relationship with food Pt stated that when she has hunger attacks if she is out, she will grab whatever she can find. Chips, and other snack foods. She was also eating cereal at night before bed. She reported that she loves cooking History/Relationship with weight Pt stated that she has been struggling with her weight for 30 years. She reported that she has never been under 200lbs in her adult life. At her heaviest she was 263lbs. History/Relationship with dieting Previous gastric sleeve. 2020. She reported that she has gained 20 lbs since then. She reported that she has only ever been able to loose 5-10lbs before WW, Adriane Cortez, [place]. Binge Eating Do you frequently eat large amounts of food in short periods of time, not feeling physically hungry? No Do you feel out of control when you eat a large amount of food in a short period of time? No Do you eat large amounts of food rapidly and typically alone? No Night Eating Do you wake up at least once during the night to eat? No If you wake up in the night, do you find that it is necessary to eat something in order to fall back asleep? No Do you have little or no appetite in the morning and feel very hungry in the evening, often overeating between dinner and when you go to bed? No Social History Family history and relationship Pt has two adult children. Her son lives at home with her and her boyfriend. She was born and raised in this area raised by her mom with her sister and brother as well as step-father. Pt became tearful when asked about her childhood. Her mother lives in the area and is in fairly good health. she reported that her mom and sister both struggled with their weight in the past. Her sister also had gastric sleeve over 10 years ago and gained all her weight back. 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 Social support boyfriend, son, sister Cultural/Ethnic information Legal Involvement and History Current or historical involvement with the legal system? Pt denied any legal issues. Education Highest grade completed trade school for culinary Preferred learning style Auditory, Verbal, Written, Learn by doing and Visual Currently enrolled in educational program? No Interested in further educational program? No Educational Interests/Skills Pt attended [employer] Employment Employment Status Unemployed Meaningful activities Cooking, baking, reading recipes, crafting, music Financial Situation Describe current financial situation Occasional struggle Financial assistance? None Service Service? No Mental Health and Addiction Treatment Current/Past substance abuse? No Current/Past addictive behavior concerns? No Pain Screening Current pain? Yes Pain in the last few months? Yes Comments Pt stated that she struggles with pain from fibromyalgia Medications Is the patient compliant with medications? Yes Does the patient have Kiser Guardian in place? No Does the patient use complimentary health approaches? Yes (Pt has a bad reaction to pain and depression medication and now takes THC at night. ) Trauma/Abuse History History of trauma? Yes Assessment & Plan Assessment & Plan (1) Major depressive disorder, recurrent episode, moderate with anxious distress: Code(s): F33.1 - Major depressive disorder, recurrent, moderate (2) Obesity: Code(s): E66.9 - Obesity, unspecified Plan Patient is struggling with severe depression as well as pain from fibromyalgia. She described feeling very overwhelmed and stressed out by family situation with her daughter. She is also seeking more frequent permanent therapy which she will reach out to her PCP for as they have therapist in the office. She has an intake scheduled however is seeing someone temporarily from her PCP's office. Pt is unsure if she should continue the program. We discussed the importance especially now of taking care of herself. She will be seen again. Telehealth Telehealth Location of provider rendering services: other Location of patient: address on file Patient Identification confirmed using: Name, : Yes Telehealth method: video Patient verbally consented to treatment: Yes Patient verbally consented to billing insurance company: Yes Patient informed of any privacy concerns related to visit: Yes Minutes spent on Phone/Video with Pt.: 35 Coding Level of Care Code Tele Psytx 30 mins (40505) Diagnoses Major depressive disorder, recurrent episode, moderate with anxious distress F33.1 Obesity E66.9 Time Spent (min) 35
== END 2023-09-13 12:00 | disposition home or self-care (01) ==
LOC: HO.HBST 11:16
PROVIDERS: PCP Nurse Practitioner Family; Visit Provider Counselor Mental Health
DX: F33.1 Major depressive disorder, recurrent, moderate (principal); E66.9 Obesity, unspecified
CPT/HCPCS: 90832

== ENCOUNTER → 2023-09-13 11:16 | Outpatient (BNVA) | payer MEDICARE, MEDICAID, SELFPAY | PROVIDERS: PCP Nurse Practitioner Family; Visit Provider Counselor Mental Health ==

== ENCOUNTER 2023-09-25 11:30 | Outpatient (AMB) | payer MEDICARE, MEDICAID, SELFPAY ==
--- NOTE | 2023-09-25 11:00 | MHC.OFFVISWM ---
Intake Intake Visit Reasons: VIDEO F/U SWL Allergies bupropion [From Wellbutrin] Adverse Reaction (Severe, Verified 06/22/23 10:42) Anxiety Medication List - Last Reconciled 09/25/23 by Micaela Koo PA-C alprazolam 0.25 mg PO BEDTIME PRN amlodipine 5 mg PO DAILY cholecalciferol (vitamin D3) 25 mcg PO DAILY escitalopram oxalate 10 mg PO DAILY omeprazole 40 mg PO BID 2 weeks HPI HPI Comments History of Present Illness Details SWL follow up for revision of previous LSG. Last seen in our office on 07/31/23 and at that time she was not adhering to meal or exercise program. She was told to send me weekly weights before having another appt with us, but she has not done this. She has been having appointments with [facility]. Patient is very clear that due to her significant depression she is not ready to be in our program. She states this appt was made due to multiple phone calls form our office. Meal plan - not following our plan Exercise - minimal Pre op work up completed as follows: SWL classes - 02/14 appts - follow up continues with [facility] VITAL appts - cleared H pylori - POSITIVE - finished treatment 06/20, retest done 07/07 - negative Labs - all normal, vit d deficient, elevated cholesterol will discuss with PCP CXR and ECG - both normal ULS - R 17.8, L 8.7, cholelithiasis UGI - FINDINGS: Dual and single contrast images of the esophagus demonstrate normal caliber, contour, and mucosal pattern. No evidence of stricture, mass, or ulcerations identified. Esophageal peristalsis was normal. A small to moderate sized hiatal hernia is present. Gastroesophageal reflux is seen up to the thoracic inlet. Dual contrast and single contrast images of the stomach demonstrated normal contour and mucosal pattern without evidence of mass, ulceration, or other abnormality. Contrast freely passed into the gastric antrum and duodenal bulb without delay. Single and air-contrast images of the duodenal bulb demonstrate no abnormality. The duodenal sweep has a normal appearance, course, and mucosal fold appearance. No malrotation. The imaged proximal jejunum has a normal fold pattern and caliber. FL/FL upper GI w air IMPRESSION: 1. Small to moderate-sized sliding hiatal hernia is present 2. Significant gastroesophageal reflux Contraception- IUD OR report received, no pathology report attached. [facility], [facility] Surgical History Hx of laparoscopic partial gastrectomy Family History Mother Colon cancer Father No problems noted. Son Autism Daughter No problems noted. Social History Alcohol intake: never Patient Tobacco Use Status: Never used Tobacco Assessment & Plan Assessment & Plan (1) Obesity: Code(s): E66.9 - Obesity, unspecified Plan: At this time she is not ready to be in our SWL program. We discussed that she will let us know if and when she becomes ready. NO appts should be made for a m edical provider in our office. She will try to start some daily exercise and to follow at meal plan that gives her proper nutrition and limits each meal ot 4 oz (8 forks) of protien and vegetable. Patient is still morbidly obese and is not considered stable at this time. I spent 20 minutes in total speaking with the patient via video conference counseling , reviewing records and charting in patients chart. . Telehealth Telehealth Location of provider rendering services: practice address Location of patient: address on file Patient Identification confirmed using: Name, : Yes Telehealth method: video Patient verbally consented to treatment: Yes Patient verbally consented to billing insurance company: Yes Patient informed of any privacy concerns related to visit: Yes Coding Level of Care Code Tele Est Pt Level 4 (99822) Diagnoses Obesity E66.9
== END 2023-09-25 12:03 | disposition home or self-care (01) ==
LOC: HO.HBS 12:03
PROVIDERS: PCP Nurse Practitioner Family; Visit Provider Physician Assistant
DX: E66.9 Obesity, unspecified (principal)
CPT/HCPCS: 99213

== ENCOUNTER → 2023-09-25 11:30 | Outpatient (BNVA) | payer MEDICARE, MEDICAID, SELFPAY | PROVIDERS: PCP Nurse Practitioner Family; Visit Provider Physician Assistant | DX: E66.9 Obesity, unspecified (principal) ==